=== PATIENT | male | born 2000 | race African-American/Black ===

== ENCOUNTER 2023-06-19 04:31 | Day surgery (SDC) | payer SELFPAY ==
[2023-06-19] VITALS (11 sets, daily range): BP systolic 99–145; BP diastolic 55–91; PULSE 67–98; RESP 14–20; TEMP 36.2–37; O2SAT 96–100; BMI 32.6
--- NOTE | 2023-06-19 04:49 | CT_ITS ---
We are attempting to reach an attending provider to discuss findings. An addendum with communication details will be sent when the communication is complete. STUDY: CT ABDOMEN AND PELVIS WITH CONTRAST REASON FOR EXAM: Male, 22 years old. RLQ pain RADIATION DOSAGE (If Supplied By Facility): CTDIvol = ( 16.88 ) mGy, DLP = ( 1339.00 ) mGycm TECHNIQUE: Transaxial images were obtained from the dome of the diaphragm to the symphysis pubis without oral contrast. IV 100mL Isovue-370 was administered. Sagittal and coronal images were reconstructed. Individualized dose optimization techniques were used for this CT. COMPARISON: None. FINDINGS: The visualized lung bases are unremarkable. The visualized portions of the heart are within normal limits. Normal liver. There is non-visualization of the gallbladder, which may be secondary to either contraction or a prior cholecystectomy. Normal spleen. Normal pancreas. Normal bilateral adrenal glands. Normal right kidney. Normal left kidney. There is a small hiatal hernia. There is mild distention of the distal small bowel.. There is mild to moderate stool within the colon. There is a nonspecific decompressed appearance of the descending colon. Best seen on the coronal view there is a thick-walled widening caliber of the appendix measuring up to 1.2 cm with surrounding inflammatory change. Image 71 coronal views, image 88 series 2. Normal abdominal aorta. Normal inferior vena cava. Normal retroperitoneum. Normal urinary bladder. Normal visualized prostate gland. Normal abdominal wall. Normal osseous structures. CT/Abdomen/Pelvis W IV Cont ONLY IMPRESSION: Findings are most consistent with acute appendicitis. Minimal ileus. Electronically Signed: Peace Melton MD at 5:52 EDT ,
--- NOTE | 2023-06-19 04:52 | EX.ED.DYSGE1 ---
HPI History of Present Illness Chief Complaint: Abd Pain Informant: patient Narrative Narrative: Patient is a 22-year-old male with history of obesity and previous cholecystectomy. He states that on Saturday afternoon he noticed abdominal discomfort. He states as time passed the pain began to intensify. He states he tried to sleep but was woke at 1 in the morning with increased pain and he has had 2 bouts of of nausea and vomiting. He also states that he has had small amount of loose stool associated with this. He denies any known sick contacts. He denies any recent travel outside the country or antibiotic use. He states that his symptoms have been progressively worsening he has concern for infective process and therefore comes in for evaluation [facility] Medical History no medical history Home Medications No Known/Unobtainable [No Known Home Medications] 05/15/17 [History Last Taken Unknown] Allergy/AdvReac Type Severity Reaction Status Date / Time No Known Allergies Allergy Verified 06/19/23 04:34 Social History Smoking Status: Never smoker [facility] ED Constitutional Constitutional ED: Denies chills or fever(s) ENT ENT ED: Denies sore throat Cardiovascular Cardiovascular: Denies chest pain Respiratory/Chest Respiratory/Chest: Denies cough or dyspnea Gastrointestinal Gastrointestinal: Reports abdominal pain, diarrhea, nausea and vomiting Genitourinary Genitourinary ED: Denies dysuria Musculoskeletal Musculoskeletal: Denies back pain or myalgias Integumentary Denies rash Neurologic Neurologic: Denies headache(s) Hematologic/Lymphatic Hematologic/Lymphatic: Denies easy bleeding or easy bruising EXAM Physical Exam Const Vital Signs: 06/19/23 04:32 06/19/23 05:34 Temperature 97.9 F Temperature Source Temporal Pulse Rate 70 67 Respiratory Rate 18 15 Blood Pressure 145/90 H 138/90 H Blood Pressure Mean 108 106 Pulse Ox 100 100 Oxygen Delivery Method Room Air Room Air Positive well nourished, well developed and obese General Appearance ED: well developed Nutritional Appearance: obese HEENT Reports moist mucous membranes HEENT Narrative: No signs of infection noted in the posterior pharynx Eyes PERRL and EOMs intact bilaterally General Eye ED: Negative for scleral icterus Neck supple Neck Narrative: No nuchal rigidity or meningeal signs present Resp normal respiratory effort and clear to auscultation bilaterally Cardio regular rate and regular rhythm Rate: other Other Details: Radial and carotid pulses equal and symmetric No murmurs rubs or gallops noted GI non-distended GI Narrative: Abdomen is soft and nondistended with hypoactive bowel sounds. Patient has pain with palpation in the right lower quadrant over McBurney's point with voluntary guarding at the site. Positive rebound. No rigidity. Positive heel strike and obturator signs. Auscultation: hypoactive bowel sounds Palpation: soft Back/Spine no CVA tenderness Extremity normal to inspection Neuro oriented x3, CN's II-XII intact bilaterally and no sensory deficits noted Sensorium / Orientation: alert Motor Exam: strength 5/5 throughout Psych mental status grossly normal Skin no rashes or lesions noted and skin turgor normal General Skin Exam: Negative for jaundice MDM MDM MDM Narrative Medical decision making narrative: Patient presented to the ER slightly hypertensive but otherwise with stable vitals. He reported pain that began around lunchtime and then worsened as time passed. With this he had bouts of nausea and vomiting and loose stool and pain was greatest in the right lower quadrant. Parental diagnosis is for acute appendicitis versus colitis versus kidney stone versus atypical biliary colic or pancreatitis. Basic labs reveal leukocytosis but otherwise no clinically significant findings. As patient did have guarding and rebound appendicitis is high on the differential and a CT with IV contrast was obtained. CT confirmed acute appendicitis without obstruction or perforation. Patient was started on Zosyn secondary to the infection and general surgery was contacted. General surgery agrees to accept the patient and will take him to the operating room later today for his appendectomy. The plan of care was discussed with the patient he is agreeable to it. History & Record Review Discussion w/independent historian: Patient Lab Data Attestation: I reviewed the patient's lab results. Labs: Laboratory Results - last 24 hr 06/19/23 04:40 WBC 15.1 H RBC 5.85 Hgb 16.5 Hct 50.3 MCV 86.0 MCH 28.2 MCHC 32.8 RDW Std Deviation 39.8 RDW Coeff of Tammie 12.8 Plt Count 245 MPV 10.4 Immature Gran % (Auto) 0.500 Neut % (Auto) 82.4 H Lymph % (Auto) 8.1 L Ellis % (Auto) 8.2 Eos % (Auto) 0.5 Baso % (Auto) 0.3 Absolute Neuts (auto) 12.4 H Absolute Lymphs (auto) 1.22 Nucleated RBC % 0 Sodium 138 Potassium 3.5 Chloride 106 Carbon Dioxide 26.0 Anion Gap 6 BUN 14 Creatinine 0.86 Estim Creat Clear Calc 156.65 Est GFR (MDRD) Af Amer 141 Est GFR (MDRD) Non-Af 117 BUN/Creatinine Ratio 16.2 Glucose 114 H Calcium 9.3 Total Bilirubin 0.80 Direct Bilirubin 0.25 AST 76 H ALT 46 Alkaline Phosphatase 73 Total Protein 8.9 H Albumin 4.5 Globulin 4.4 H Lipase 70 Radiography Diagnostic Testing: Clinical Impression(s) from Imaging Studies Abdomen/Pelvis CT 06/19/23 04:49 IMPRESSION: Findings are most consistent with acute appendicitis. Minimal ileus. Electronically Signed: Peace Melton MD at 5:52 EDT Reading Location ID and State: [facility] / [place] Tel , Service support , ADDENDUM: 06/19/23 0607 IMPRESSION: Findings are most consistent with acute appendicitis. Minimal ileus. N.B. : The above Results were Read Back by Peace Melton MD to Luiz Garza DO, and understanding confirmed on 06/19/2023 06:00:47 (ET). Electronically Signed: Peace Melton MD at 5:52 EDT , Management Discussion w/another healthcare provider: [facility] Discharge Plan Dx/Rx/DC Orders Clinical Impression: Acute appendicitis Disposition Disposition: Acute Care [facility]
[2023-06-19] MEDS: Ondansetron 4 MG/2 ML Vial IV (04:57)
[2023-06-19 04:58] LABS: Absolute Lymphocyte Count 1.22 X10^3/uL (0.83-4.51); Absolute Neutrophil Count 12.4 X10^3/uL (2.0-7.7); Basophil# 0.04 X10^3/uL; Basophil% 0.3 % (0-1); Eosinophil# 0.08 X10^3/uL; Eosinophils% 0.5 % (0-5); Hematocrit 50.3 % (40-54); Hemoglobin 16.5 g/dL (13.0-16.5); Lymphocyte # 1.22 X10^3/ul (0.83-4.51); Lymphocyte % 8.1 % (19-41); Mean Corp Hgb Conc 32.8 g/dL (32-36); Mean Corpuscular Hgb 28.2 pg (27.0-32.0); Mean Platelet Vol. 10.4 fl (6.2-12.0); Monocyte# 1.24 X10^3/uL; Monocyte% 8.2 % (0-10); NRBC Flagged by Analyzer 0 % (0-5); Neutrophil % 82.4 % (47-70); Platelet Count 245 K/mm3 (150-450); RBC Distribution Width CV 12.8 % (11.6-14.6); RBC Distribution Width SD 39.8 fl (35.1-43.9); Red Blood Count 5.85 M/mm3 (4.6-6.2); White Blood Count 15.1 K/mm3 (4.4-11.0)
[2023-06-19] MEDS: 0.9% Normal Saline (1000mL) 1,000 ML 999 ML IV (04:59)
[2023-06-19] MEDS: Morphine 4 MG/ML Syringe IV (04:59)
[2023-06-19 05:15] LABS: AST(SGOT) 76 U/L (15-37); Alanine Aminotransfer ALT/SGPT 46 U/L (16-61); Albumin, Serum 4.5 g/dL (3.2-5.0); Alkaline Phosphatase 73 U/L (45-117); Anion Gap 6 (5-15); BUN 14 mg/dL (7-18); BUN/Creat Ratio 16.2 RATIO (10-20); Bilirubin, Direct 0.25 mg/dL (0.00-0.30); Calcium,Total 9.3 mg/dL (8.5-10.1); Chloride 106 mmol/L (98-107); Creatinine, Serum 0.86 mg/dL (0.70-1.30); EST Glomerular Filtration Rate 117 mL/min (>60); Est Glom Filt Rate - Afr Amer 141 mL/min (>60); Estimated Creatinine Clearance 156.65 ml/min; Globulin 4.4 g/dL (2.2-4.2); Glucose 114 mg/dL (74-106); Lipase 70 U/L (13-75); Potassium 3.5 mmol/L (3.5-5.1); Protein, Total 8.9 g/dL (6.4-8.2); Sodium Level 138 mmol/L (136-145)
[2023-06-19] MEDS: HYDROmorphone 1 MG/ML Syringe IV (05:35)
--- NOTE | 2023-06-19 06:33 | PCM.HP.STD ---
HPI - General General Date of Admission: 06/19/23 HPI Narrative LALITA ASHER, is a 22 M who presents to the ER due to right lower quadrant pain. Patient states it was mild about 5 PM however it woke him up around 1 AM with increased pain. Patient did have nausea vomiting with this. Last drink about 4 AM but did have vomiting with this. Patient's only surgery is laparoscopic cholecystectomy. Patient CT abdomen pelvis was consistent with acute appendicitis. Patient's white blood count was 15.1 in the ER. Patient was given Zosyn IV. PFSH Medical History no medical history Home Medications No Known/Unobtainable [No Known Home Medications] 05/15/17 [History Last Taken Unknown] Allergy/AdvReac Type Severity Reaction Status Date / Time No Known Allergies Allergy Verified 06/19/23 04:34 Surgical History (Updated 06/19/23 @ 06:[address] Leena Munoz MD) S/P laparoscopic cholecystectomy Social History Smoking Status: Never smoker Vital Signs Vital Signs Vital Signs: 06/19/23 04:32 06/19/23 05:34 Temperature 97.9 F Temperature Source Temporal Pulse Rate 70 67 Respiratory Rate 18 15 Blood Pressure 145/90 H 138/90 H Blood Pressure Mean 108 106 Pulse Ox 100 100 Oxygen Delivery Method Room Air Room Air Weight Weight: 254 lb 3.088 oz Body Mass Index (BMI) 32.6 Physical Exam Const alert, oriented x3 and no apparent distress HEENT normocephalic and head/scalp atraumatic Resp normal respiratory effort Cardio regular rate GI soft to palpation; Negative for non-distended Palpation: tender RLQ; Negative for guarding Extremity no clubbing, cyanosis or edema Neuro CN's II-XII intact bilaterally Psych mental status grossly normal Results Lab / Micro Data 06/19/23 04:40 06/19/23 04:40 Labs: Laboratory Results - last 24 hr 06/19/23 04:40: WBC 15.1 H, RBC 5.85, Hgb 16.5, Hct 50.3, MCV 86.0, MCH 28.2, MCHC 32.8, RDW Std Deviation 39.8, RDW Coeff of Tammie 12.8, Plt Count 245, MPV 10.4, Immature Gran % (Auto) 0.500, Neut % (Auto) 82.4 H, Lymph % (Auto) 8.1 L, [place] % (Auto) 8.2, Eos % (Auto) 0.5, Baso % (Auto) 0.3, Absolute Neuts (auto) 12.4 H, Absolute Lymphs (auto) 1.22, Nucleated RBC % 0, Sodium 138, Potassium 3.5, Chloride 106, Carbon Dioxide 26.0, Anion Gap 6, BUN 14, Creatinine 0.86, Estim Creat Clear Calc 156.65, Est GFR (MDRD) Af Amer 141, Est GFR (MDRD) Non-Af 117, BUN/Creatinine Ratio 16.2, Glucose 114 H, Calcium 9.3, Total Bilirubin 0.80, Direct Bilirubin 0.25, AST 76 H, ALT 46, Alkaline Phosphatase 73, Total Protein 8.9 H, Albumin 4.5, Globulin 4.4 H, Lipase 70 Radiology Impression Abdomen/Pelvis CT 06/19/23 04:49 IMPRESSION: Findings are most consistent with acute appendicitis. Minimal ileus. Electronically Signed: Peace Melton MD at 5:52 EDT , ADDENDUM: 06/19/23 0607 IMPRESSION: Findings are most consistent with acute appendicitis. Minimal ileus. N.B. : The above Results were Read Back by Peace Melton MD to Luiz Garza DO, and understanding confirmed on 06/19/2023 06:00:47 (ET). Electronically Signed: Peace Melton MD at 5:52 EDT , Assessment & Plan Assessment/Plan (1) Acute appendicitis: PLAN: Plan 1. Discussed procedure laparoscopic appendectomy, possible open along with the risk but not limited to bleeding, infection/abscess, injury to another organ (small bowel, colon, etc.), adhesion, hernia at incision sites, and anesthesia. Patient and his mom had no further questions at this time Leena Munoz M.D. Pager: [phone] [facility] [address], [address] [place] [address] Office: [phone]
[2023-06-19] MEDS: Piperacil/Tazobactam 3.375 GM in 0.9% Normal Saline (50mL MB+) 50 ML IV (06:36)
--- NOTE | 2023-06-19 07:30 | APP_PTH ---
PATIENT: LALITA ASHER LOC: [facility] U#:[id number] AGE/SX: 22/M ROOM: RE06/19/[address]: Dr. Leena Munoz MD : 2000 BED: DIS: 06/19/2023 SPEC #: [id number] RECD: 06/19/23 08:45 STATUS: DEVIKA RENola #: [id number] YAHAIRA: 06/19/23 07:[address]: Leena Munoz DEPT: SURGICAL PATHOLOGY RECD BY: Patrizia Robles ENTERED: 06/19/23 10:28 SP TYPE: APPENDIX CHRISTIE DR: No Primary Care Phys Tissues: Appendix, NOS Procedures: Surgery Specimen Level III HEADER OPERATION: Laparoscopic appendectomy PRE-OP DIAGNOSIS: Acute appendicitis TISSUE SUBMITTED: Appendix MICROSCOPIC DIAGNOSIS Appendix, appendectomy: Acute necrotizing appendicitis. Acute serositis. AM:olivier 06/20/2023 MICROSCOPIC DESCRIPTION Slides are reviewed. GROSS DESCRIPTION Received in fixative is one container labeled with the patient's name and designated appendix. The specimen consists of a C-shaped appendix measuring 11.5 cm in length and up to 1.0 cm in diameter. The attached periappendiceal adipose tissue measures up to 4.5 cm in width. The serosal surface is congested. Focally, wilkerson, purulent exudate is noted. No obvious perforation is identified. The lumen is filled with hemorrhagic material. No fecalith is identified. Inventory Planner sections are submitted in two cassettes. / SJ:olivier 06/19/2023 TC:2 CPT: 05334
[2023-06-19] MEDS: Bupivacaine Mpf 0.5% 30 ML VIAL (07:57)
--- NOTE | 2023-06-19 08:18 | PCM.OPRPT ---
Report of Operation Date of Procedure: 06/19/23 Pre-Operative Diagnosis: Acute appendicitis Post-Operative Diagnosis: Same Surgery/Procedure Performed:: Laparoscopic appendectomy Surgeon: Leena Munoz Type of Anesthesia: General/Supplemental Anesthesiologist: Berto Mohamud Special Medications: Zosyn IV in the ER for acute appendicitis Specimen's removed: Appendix Estimated Blood Loss (mL): 10 cc Description of Procedure: Indications: 22-year-old male presented to the ER with new right lower quadrant pain yesterday and increased this morning. On workup he was found to have acute appendicitis on CT and a leukocytosis of 15.1. Patient was started on antibiotics in the ER for acute appendicitis-Zosyn IV Description of the procedure: The patient was placed on operating table in supine position. General anesthesia was induced. A timeout was completed verifying correct patient, procedure, position and special equipment prior to beginning procedure. Abdomen was prepped and draped in usual sterile fashion. Incision was made in the natural skin line above the umbilicus with a 15 blade scalpel. The fascia was elevated and incised. Entry into the peritoneum was confirmed visually and no bowel was noted in the vicinity of the incision. The [place] trocar was placed under direct vision. Abdomen insufflated with a pressure of 12-15 mmHg. Patient tolerated insertion well. The scope was inserted and the abdomen inspected. No injuries from initial trocar placement were noted. Minimal amount of fluid was seen in the right lower quadrant. An direct visualization 2 -5 mm trocars were placed one above the symphysis pubis and below the hairline and one in the left lower quadrant lateral to the rectus muscle. Care is taken to avoid injury to the bladder and inferior epigastric vessels. The table was placed in Trendelenburg position with the right side elevated. The appendix was grasped with atraumatic grasper and elevated. It was noted to be inflamed. A window was developed in the mesoappendix at the point between the base of the appendix and the cecum. An endoscopic 45 mm linear cutting stapler blue load was then used to divide and staple the base of the appendix. Enseal was used to divide the mesoappendix. The appendix was withdrawn into the [place] trocar after being placed endoscopically retrieval bag. Appendix was sent to pathology. The appendiceal stump was then irrigated and hemostasis was assured. Fluid was suctioned and sent for culture?no other pathology was identified. Secondary trochars were removed under direct visualization. No bleeding was noted trocar sites. The laparoscope withdrawn and the umbilical trocar removed. The abdomen was allowed to collapse. Local anesthesia of 30 mL of 0.5% Marcaine was used at the incision sites. The umbilical trocar site was closed with the [id number] 0 Vicryl suture. The skin was closed using sutures of 4-0 Monocryl and Steri-Strips. The patient was extubated. The patient tolerated the procedure well and was taken to the postanesthesia care unit in satisfactory condition. Complications none
--- NOTE | 2023-06-19 08:20 | DCINST_ITS ---
Discharge Instructions Diet Discharge Diet: Light diet - advance as tolerated Activity Discharge Activity: May Not Drive (while taking narcotic pain medications.) May shower in (days): 1 Lifting Restrictions: no lifting >20 lbs x 2 wks, no strenuous exercise for 4 wks Dressing / Incision Call your doctor if your incision/area has: Continuous Slow Oozing, Sudden Increased Bleeding, Increased Pain/ Swelling, Increased Redness, Foul Smelling Discharge and Swelling at the incision site Call your doctor if you observe: Fever of 101 or Higher Remove Dressing in: 2 days Cleanse incision/area with: Soap & Water Additional Dressing/Incision Instructions:: Steri-Strips will fall off in 7 to 10 days, if they do not fall off okay to remove after 10 days. Follow Up Care Please Follow Up With: Leena Munoz MD When: Call the office for a follow-up appointment 2 weeks; after 5 PM and on the weekends call [phone] with any concerns. Test Results: Test results from this visit will be discussed in further detail at your follow- up appointment, if applicable. Discharge Plan Admission Attending Provider: Leena Munoz Primary Care Provider: Care Physician,Alexandra Primary Instructions Additional Instructions / Restrictions: Okay to take ibuprofen 400-600 mg PO q6hr PRN along with the Percocet. Avoid Tylenol since there is already Tylenol in the Percocet. Take all pain meds with food. Percocet can cause constipation recommend taking daily stool softener (i.e. Colace/docusate) while taking the pain meds. Recommend starting some MiraLAX in 1-2 days if no bowel movement. If still no bowel movement the next day recommend taking magnesium citrate half the bottle and waiting 4-6 hours if still no results take the other half the bottle. Discharge Orders/Prescriptions Prescriptions: New oxycodone-acetaminophen 5-325 mg tablet 1 - 2 tab PO Q6H PRN (Reason: pain) 3 Days Qty: 14 0RF No Action No Known Home Medications Referrals / Follow Up: Care Physician,Alexandra Primary [Primary Care Provider] - Disposition Disposition (needs filled in before D/C Order can be placed): Home, Self Care
[2023-06-19] MEDS: Lactated Ringers 1,000 ML 15 ML IV (08:45)
== END 2023-06-19 11:37 | disposition home or self-care (01) ==
LOC: ED 06:31 → SDC 06:38 → ICU 06:41 → PCU 08:20
PROVIDERS: Emergency Provider Emergency Medicine; Visit Provider Surgery
PROC: 0DTJ4ZZ Resection of Appendix, Percutaneous Endoscopic Approach (ICD-10-PCS; CPT 44970; principal; 2023-06-19 07:10)
DX: K35.80 Unspecified acute appendicitis (principal); E66.9 Obesity, unspecified; Z90.49 Acquired absence of other specified parts of digestive tract
CPT/HCPCS: 44970; 00840; 74177; 80048; 80076; 83690; 85025; 87070; 87075; 87205; 88304; 99284; J7030; J7120; Q9967; A4216; C1760; J2405